=== PATIENT | male | born 1990 | race African-American/Black ===

== ENCOUNTER 2017-07-29 21:33 | Emergency (ER) | payer OTHER ==
[~2017-07-29] VITALS: Ht 172.7 cm; Wt 68.2 kg
[2017-07-29 23:04] VITALS: BP 112/65
== END 2017-07-29 23:05 | disposition home or self-care (01) ==
LOC: M ED 21:33
DX: R35.0 Frequency of micturition (principal)

== ENCOUNTER 2018-05-13 11:28 | Emergency (ER) | payer OTHER | END 2018-05-13 13:57 | disposition home or self-care (01) | LOC: M ED 11:28 | DX: M25.562 Pain in left knee (principal); S76.312A Strain of muscle, fascia and tendon of the posterior muscle group at thigh level, left thigh, initial encounter; W17.89XA Other fall from one level to another, initial encounter; Y92.830 Public park as the place of occurrence of the external cause | CPT/HCPCS: 73564 ==

== ENCOUNTER 2019-02-19 19:52 | Emergency (ER) | payer OTHER ==
[~2019-02-19] VITALS: Ht 172.7 cm; Wt 72.7 kg
[~2019-02-19 19:52] MED LIST: IBUP-1022 PO
[2019-02-19] MEDS ORDERED: LIDOCAINE 1% SDV 5 ML VIAL DILUENT ONE (21:15)
[2019-02-19] MEDS ORDERED: cefTRIAXone SOD 250 MG VIAL (J0696) IM ONE (21:15)
[2019-02-19] MEDS ORDERED: AZITHROMYCIN 250 MG TAB PO ONE (21:15)
[2019-02-19 21:42] VITALS: BP 121/84
[2019-02-19 23:13] LABS: CHLAMYDIA DNA AMPLIFICATION NEGATIVE (NEGATIVE); GC DNA AMPLIFICATION NEGATIVE (NEGATIVE)
== END 2019-02-19 22:02 | disposition home or self-care (01) ==
LOC: M ED 19:52
DX: N34.1 Nonspecific urethritis (principal)
CPT/HCPCS: 81001; 87491; 87591; 96372; 99283; J0696

== ENCOUNTER 2019-04-18 07:24 | Emergency (ER) | payer OTHER ==
[~2019-04-18] VITALS: Ht 172.7 cm; Wt 72.7 kg
[2019-04-18 07:25] VITALS: BP 119/73
[2019-04-18] MEDS ORDERED: cefTRIAXone SOD 250 MG VIAL (J0696) IM ONE (07:45)
[2019-04-18] MEDS ORDERED: AZITHROMYCIN 250 MG TAB PO ONE (07:45)
[2019-04-18] MEDS ORDERED: metroNIDAZOLE (FLAGYL) 500 MG TAB PO ONE (07:45)
[2019-04-18] MEDS ORDERED: LIDOCAINE 1% SDV 5 ML VIAL DILUENT ONE (07:45)
[2019-04-18 10:31] LABS: CHLAMYDIA DNA AMPLIFICATION POSITIVE (NEGATIVE); GC DNA AMPLIFICATION NEGATIVE (NEGATIVE)
[2019-04-19] MEDS ORDERED: DOXY100C37 PO (08:15)
--- NOTE | 2019-04-19 08:15 | ED PDOC ---
Post-Departure Follow-Up STD testing positive for C. Trachomatis. ERx for doxycycline 100mg BID for 7 day s sent. Patient informed by staffing consultant Michael Us M.D. Apr 19, 2019 08:15
[2019-04-20 11:26] LABS: HEPATITIS B SURFACE ANTIBODY POSITIVE (POSITIVE); HEPATITIS B SURFACE ANTIGEN NEGATIVE (NEGATIVE); HEPATITIS C VIRUS ABY INDEX 0.1 INDEX (<0.8); HIV 1&2 SCREEN CENTAUR NEGATIVE (NEGATIVE)
== END 2019-04-18 08:16 | disposition home or self-care (01) ==
LOC: M ED 07:24
DX: A74.9 Chlamydial infection, unspecified (principal)
CPT/HCPCS: 86592; 86706; 86780; 86803; 87340; 87389; 87661; 96372; 99283; J0696

== ENCOUNTER 2019-04-20 05:53 | Emergency (ER) | payer OTHER ==
[~2019-04-20] VITALS: Ht 172.7 cm; Wt 72.7 kg
[~2019-04-20 05:53] MED LIST changes: +DOXY100C37 PO
[2019-04-20 06:30] VITALS: BP 121/73
[2019-04-20] MEDS ORDERED: DOXY100C37 PO (06:35)
== END 2019-04-20 06:45 | disposition home or self-care (01) ==
LOC: M ED 05:53
DX: A56.01 Chlamydial cystitis and urethritis (principal)

== ENCOUNTER 2019-11-15 13:40 | Emergency (ER) | payer OTHER ==
[~2019-11-15] VITALS: Ht 172.7 cm; Wt 68.4 kg
[2019-11-15] MEDS ORDERED: ACETAMINOPHEN 325 MG TAB PO ONE (14:15)
[2019-11-15 14:44] LABS: INFLUENZA A AMPLIFICATION POSITIVE (NEGATIVE); INFLUENZA B AMPLIFICATION NEGATIVE (NEGATIVE)
[2019-11-15] MEDS ORDERED: ACET-683 PO (14:52)
[2019-11-15] MEDS ORDERED: IBUP-1022 PO (14:52)
[2019-11-15 15:00] VITALS: BP 132/71
[2019-11-15] MEDS ORDERED: IBUPROFEN 600 MG TAB As Ordered ONE (15:08)
[2019-11-15] MEDS ORDERED: IBUPROFEN 800 MG TAB PO ONE (15:15)
== END 2019-11-15 15:15 | disposition home or self-care (01) ==
LOC: M ED 13:40
DX: J09.X2 Influenza due to identified novel influenza A virus with other respiratory manifestations (principal)

== ENCOUNTER 2019-12-20 11:23 | Emergency (ER) | payer OTHER ==
[~2019-12-20] VITALS: Ht 172.7 cm; Wt 67.4 kg
[2019-12-20 11:23] VITALS: BP 124/74
[~2019-12-20 11:23] MED LIST changes: +ACET-683 PO
[2019-12-20] MEDS ORDERED: ALL10TAB29 PO (11:45)
[2019-12-20] MEDS ORDERED: TESS100C PO (11:45)
== END 2019-12-20 12:38 | disposition home or self-care (01) ==
LOC: M ED 11:23
DX: R09.82 Postnasal drip (principal); R05 Cough; Z20.828 Contact with and (suspected) exposure to other viral communicable diseases
CPT/HCPCS: 87486; 87581; 87633; 87798; 99284; U0002

== ENCOUNTER 2020-02-06 10:14 | Emergency (ER) | payer OTHER, SELFPAY ==
[~2020-02-06] VITALS: Ht 172.7 cm; Wt 66.9 kg
[~2020-02-06 10:14] MED LIST changes: +ALL10TAB29 PO; +TESS100C PO
[2020-02-06 11:05] LABS: APPEARANCE, URINE CLEAR (CLEAR); BACTERIA, URINE AUTO NEGATIVE (NEGATIVE); BILIRUBIN, URINE AUTO NEGATIVE (NEGATIVE); BLOOD, URINE BLOOD 2+ (NEGATIVE); COLOR, URINE YELLOW (YELLOW); GLUCOSE, URINE (UA) AUTO NEGATIVE (NEGATIVE); KETONE, URINE AUTO NEGATIVE (NEGATIVE); LEUKOCYTE ESTERASE, URINE AUTO NEGATIVE (NEGATIVE); MUCUS, URINE SMALL (NEGATIVE); NITRITE, URINE AUTO NEGATIVE (NEGATIVE); PROTEIN, URINE AUTO NEGATIVE (NEGATIVE); RBC, URINE AUTO 3 /HPF (0-3); SPECIFIC GRAVITY URINE AUTO 1.018 (1.002-1.035); SQUAMOUS EPITHELIAL CELL UR AU 0 /HPF (0-6); UROBILINOGEN, URINE AUTO 0.2 mg/dL (0.0-2.0); WBC, URINE AUTO 0 /HPF (0-3)
[2020-02-06 12:58] LABS: CHLAMYDIA DNA AMPLIFICATION NEGATIVE (NEGATIVE); GC DNA AMPLIFICATION NEGATIVE (NEGATIVE)
[2020-02-06 13:34] LABS: BASO % 0.5 % (0.0-1.0); EOS # 0.1 10^3/uL (0.0-0.5); EOS % 1.2 % (0.0-3.0); HEMATOCRIT 43.6 % (42.0-52.0); HEMOGLOBIN 15.1 g/dl (13.5-17.5); LYMPH # 2.2 10^3/uL (1.5-5.0); LYMPH % 53.7 % (24.0-44.0); MEAN CORPUSCULAR HEMOGLOBIN 30.6 pg (27.0-33.0); MEAN CORPUSCULAR HGB CONC 34.6 g/dl (32.0-36.5); MEAN CORPUSCULAR VOLUME 88.4 fl (80.0-96.0); MONO # 0.4 10^3/uL (0.0-0.8); MONO % 9.2 % (0.0-5.0); NEUTROPHILS # 1.4 10^3/uL (1.5-8.5); NEUTROPHILS % 35.2 % (36.0-66.0); PLATELET COUNT, AUTOMATED 232 10^3/uL (150-450); RED BLOOD COUNT 4.93 10^6/uL (4.30-6.10)
[2020-02-06 13:59] VITALS: BP 126/78
== END 2020-02-06 13:59 | disposition home or self-care (01) ==
LOC: M ED 10:14
DX: R10.2 Pelvic and perineal pain (principal)

== ENCOUNTER 2020-05-25 11:43 | Emergency (ER) | payer OTHER, SELFPAY ==
[~2020-05-25] VITALS: Ht 170.2 cm; Wt 70.2 kg
[~2020-05-25 11:43] MED LIST changes: -ALL10TAB29 PO; +CETI-24 PO
[2020-05-25 11:44] VITALS: BP 117/78
[2020-05-25 14:05] LABS: HEPATITIS B SURFACE ANTIBODY POSITIVE (POSITIVE); HEPATITIS B SURFACE ANTIGEN NEGATIVE (NEGATIVE); HEPATITIS C VIRUS ABY INDEX 0.1 INDEX (<0.8); HIV 1&2 SCREEN CENTAUR NEGATIVE (NEGATIVE)
[2020-05-25 14:54] LABS: CHLAMYDIA DNA AMPLIFICATION NEGATIVE (NEGATIVE); GC DNA AMPLIFICATION NEGATIVE (NEGATIVE)
--- NOTE | 2020-05-25 15:08 | ED PDOC ---
Post-Departure Follow-Up Pt called and notified to return to the ER for treatment of syphillis. Jonathan n was had of being treated prior to leaving the ER pt declined. EVITA ANDREWS PA-C May 25, 2020 15:08
[2020-05-28 15:07] LABS: HSV-1 DNA Negative (Negative); HSV-2 DNA Negative (Negative)
== END 2020-05-25 13:15 | disposition home or self-care (01) ==
LOC: M ED 11:43
DX: Z11.3 Encounter for screening for infections with a predominantly sexual mode of transmission (principal); A53.9 Syphilis, unspecified; R31.9 Hematuria, unspecified
CPT/HCPCS: 81001; 86592; 86706; 86780; 86803; 87340; 87389; 87529; 87661; 96372; 99283; J0561

== ENCOUNTER 2020-05-25 15:45 | Emergency (ER) | payer OTHER ==
[~2020-05-25] VITALS: Ht 170.2 cm; Wt 70.2 kg
[2020-05-25] MEDS ORDERED: BICILLIN L-A 2,400,000 UNIT/4 ML SYRINGE (J0561-24)PENICILLIN G BENZATINE IM ONE (16:15)
[2020-05-25 17:44] VITALS: BP 124/75
== END 2020-05-25 17:45 | disposition home or self-care (01) ==
LOC: M ED 15:45
DX: Z11.3 Encounter for screening for infections with a predominantly sexual mode of transmission (principal); A53.9 Syphilis, unspecified; R31.9 Hematuria, unspecified